=== PATIENT | female | born 1955 | race Caucasian/White ===

== ENCOUNTER 2016-07-02 08:11 | Emergency (ER) | payer BC ==
--- NOTE | 2016-07-02 08:28 | ERNOTE ---
Abdominal HPI - General Chief Complaint: Abdominal Pain Time Seen by Provider: 07/02/16 08:16 Source: patient Exam Limitations: no limitations - Immun/Allergies/Home Medications Immunizatons: IMMUNIZATION HX History of Influenza Vaccine No Hx Pneumococcal Vaccination No Allergies/Adverse Reactions: Allergies indomethacin [From Indocin] Allergy (Mild, Verified 07/02/16 08:21) RASH, SWELLING indomethacin sodium [From Indocin] Allergy (Mild, Verified 07/02/16 08:21) RASH, SWELLING sertraline HCl [From Zoloft] Adverse Reaction (Mild, Verified 07/02/16 08:21) rash Home Medications: HOME MEDICATIONS Olmesartan/Hydrochlorothiazide [Benicar Hct 40-25 mg Tablet] 1 each PO DAILY 09/06 [Last Taken 01/15/13] Potassium Chloride [K-Dur] 20 meq PO DAILY 07/28/12 [Last Taken 01/15/13] Aspirin [Aspirin Enteric Coated] 81 mg PO DAILY 12/13/13 [Last Taken Unknown] Esomeprazole Magnesium [Nexium] 40 mg PO DAILY 04/04/15 [Last Taken Unknown] Flecainide Acetate [Tambocor] 100 mg PO BID 04/04/15 [Last Taken Unknown] - History of Present Illness Narrative: Patient has had right upper quadrant pain intermittently for three days. The pain last about 15 minutes, resolves to come back 30minutes later, radiates to the back, nausea, no vomiting. Patient had a piece of toast at 02:00, no other food. Date (Duration): 06/29/16 Timing: intermittent Quality: moderate Activities at Onset: none Modifying Factors - (Worsens): Absent: breathing, coughing Associated Symptoms: Present: fever/chills, nausea. Absent: diarrhea-gross blood, vomiting, shortness of breath Prior Abdominal Problems: Present: none Prior Treatment: Absent: recently seen, currently on antibiotics Review of Systems - Review of Systems Constitutional: Absent: recent illness, fever ENT: Absent: sore throat Respiratory: Absent: shortness of breath Cardiology: Absent: chest pain Gastrointestinal/Abdominal: Present: See HPI Genitourinary: Present: no symptoms reported - Patient's Past Medical History Patient History - Medical: GERD, Hypothyroidism, Kidney stone, Other Patient History - Cardiac/Respiratory: Atrial Fibrillation, COPD, Hypertension, Pneumonia, Other Patient History - Cancer: No Hx of Cancer Patient History - Surgical Procedures: Tubal Ligation, Other Patient History - Other: None - Family History Father Family History - Medical: Other Grandmother-Paternal Family History - Medical: Other Mother Family History - Medical: Diabetes Type 2 Family History - Cardiac/Respiratory: Other - Social History Living Situations: home Abuse History: No History of abuse Psych History: No pertinent hx Smoking Status: Current every day smoker Alcohol Use: rarely Drug Use: other - Immunizations Immunizations Up to Date: Yes Hx Pneumococcal Vaccination: No History of Influenza Vaccine: No Physical Exam - Physical Exam General Appearance: Present: wd/wn, alert, no apparent distress, obese Respiratory: Present: no respiratory distress, normal breath sounds, no accessory muscle use, lungs clear Cardiovascular/Chest: Present: regular rate, rhythm, no murmur Gastrointestinal/Abdominal: Present: normal bowel sounds, nontender, nondistended, soft Neurological Exam: Present: alert, oriented, normal mood/affect Skin Exam: Present: normal color, warm/dry ED Progress - Results and Orders Patient's Lab Results:: I have reviewed the patient's lab results. - Vital Signs Patient's Vital Signs:: I have reviewed the patient's vital signs. Vital Signs: Vital Signs 07/02/16 08:17 Temperature 36.4 C L Pulse Rate 87 Respiratory 12 Rate Blood Pressure 158/99 O2 Sat by Pulse 96 Oximetry - CT/Ultrasound CT/Ultrasound Narrative: ultrasound: one stone, no cholecystitis - Progress/Reassessment Chief Complaint: Abdominal Pain Progress Note-Subjective: 07/02/16 10:02 pain resolved, discussed results with patient, discussed difference between gall stones and cholecystitis discussed follow up with surgeon, patient wants to wait at this time as pain has resolved Departure - Departure Clinical Impression: Abdominal pain Qualifiers: Abdominal location: right upper quadrant Qualified Code(s): R10.11 - Right upper quadrant pain Cholelithiasis Qualifiers: Cholelithiasis location: gallbladder Cholecystitis presence: without cholecystitis Biliary obstruction: without biliary obstruction Qualified Code(s) : K80.20 - Calculus of gallbladder without cholecystitis without obstruction Disposition: Home self-care Condition: Good Instructions: Cholelithiasis, [id number] Additional Instructions: call Maribell for follow up Referrals: Maribell Germain, H[employer] OPERATOR [[facility]] -
[2016-07-02 08:49] LABS: Hematocrit 45.2 % (37.0-47.0); Hemoglobin 15.3 gm/dL (12.5-16.0); Mean Cell Volume 89.7 fl (78-100); Mean Corpuscular Hemoglobin 30.4 pg (27-31); Mean Corpuscular Hgb Conc 33.8 g/dl (32-36); Mean Platelet Volume 8.4 fl (6.0-9.5); Neutrophil # 7.7 K/mm3 (1.3-6.0); Platelet Count 283 K/mm3 (150-450); Red Blood Count 5.04 M/mm3 (4.2-5.4); Red Cell Distribution Width 13.5 % (11.5-14.0); White Blood Count 12.8 K/mm3 (4.0-10.5)
[2016-07-02 09:07] LABS: Albumin * 3.7 gm/dl (3.4-5.0); BUN/Creatinine Ratio 25.4 (9.0-21.6); Bilirubin, Total 0.8 mg/dL (0.0-1.1); Ca. Corrected For Albumin 8.9 mg/dL (8.4-10.2); Carbon Dioxide 25.7 mmol/L (24-32.6); Potassium 3.7 mmol/L (3.4-4.6); Total Protein 7.7 gm/dL (6.2-8.2)
[2016-07-02 09:44] VITALS: BP 154/84
== END 2016-07-02 10:18 | disposition home or self-care (01) ==
LOC: ER 08:11
DX: K80.20 Calculus of gallbladder without cholecystitis without obstruction (principal); R10.11 Right upper quadrant pain; F17.210 Nicotine dependence, cigarettes, uncomplicated; K21.9 Gastro-esophageal reflux disease without esophagitis; I10 Essential (primary) hypertension

== ENCOUNTER 2017-01-22 06:46 | Day surgery (SDC) | payer BC ==
[~2017-01-22 06:46] MED LIST: RINGER'S SOLUTION,LACTATED 1,000 ML IV PRN
[2017-01-22 07:23] LABS: Hematocrit 42.6 % (37.0-47.0); Hemoglobin 14.4 gm/dL (12.5-16.0); Mean Cell Volume 89.9 fl (78-100); Mean Corpuscular Hemoglobin 30.4 pg (27-31); Mean Corpuscular Hgb Conc 33.8 g/dl (32-36); Mean Platelet Volume 8.6 fl (6.0-9.5); Neutrophil # 5.6 K/mm3 (1.3-6.0); Platelet Count 274 K/mm3 (150-450); Red Blood Count 4.74 M/mm3 (4.2-5.4); Red Cell Distribution Width 12.8 % (11.5-14.0); White Blood Count 9.7 K/mm3 (4.0-10.5)
[2017-01-22] MEDS ORDERED: RINGER'S SOLUTION,LACTATED 1,000 ML IV ONE (07:30)
[2017-01-22] MEDS ORDERED: IBUPROFEN 600 MG TABLET PO PRN (08:34)
[2017-01-22] MEDS ORDERED: oxyCODONE HCL/ACETAMINOPHEN 1 TAB TABLET PO PRN (08:34)
--- NOTE | 2017-01-22 08:39 | OR ---
Operative Report - Dictated Report Narrative: Operative Report 01/22/17 Hysteroscopy Dilatation and Curettage Preoperative Diagnosis: Abnormal Appearance of the Endometrium, Uterine Fibroids Postoperative Diagnosis: Abnormal Appearance of the Endometrium, Uterine Fibroids Procedure: Hysteroscopy Dilatation and Curettage Surgeon: Cary Moralez M.D. Anesthesia: Mario Amador JUNK REMOVAL SPECIALIST, IV sedation Findings: Uterine sound was 8 cm. There was a submucosal fibroid on the posterior aspect of the endometrium which was not removed. There was a small polypoid structure on the anterior aspect of the endometrium just inside the internal cervical os which was removed with curettage. Fluids: 700 ml EBL: Normal Drains: None Complications: None Condition: Stable Pathology: Endometrial curettings and questionable polyp Procedure: The patient was taken to the operating room with IV fluids running. She was placed in the dorsal lithotomy position after anesthesia was induced. A bivalve speculum was placed in the vagina. The anterior lip of the cervix was grasped with a single-tooth tenaculum. Uterine sound was passed into the endometrial cavity with ease. Uterine sound was 8 cm. The cervix was dilated with Alexi dilators. The hysteroscope was introduced into the endometrial cavity. The cavity was distended with normal saline. [place] were visualized bilaterally. Note the findings above. The hysteroscope was removed. The cavity was sharply curetted without difficulty. The hysteroscope was once again introduced into the cavity. The cavity was completely curetted. Attempt was made to remove the submucosal fibroid but was unsuccessful. The hysteroscope was removed. The single-tooth tenaculum was removed. Sites were hemostatic. The speculum was removed from the vagina. Sponge counts were correct 2. The patient tolerated the procedure well.
[2017-01-22] MEDS ORDERED: NORMAL SALINE 1,000 ML IV ONE (08:40)
[2017-01-22 09:41] VITALS: BP 121/66
== END 2017-01-22 06:47 | disposition home or self-care (01) ==
LOC: AMB 06:46
PROVIDERS: ATTEND Obstetrics & Gynecology
PROC: 0UDB8ZX Extraction of Endometrium, Via Natural or Artificial Opening Endoscopic, Diagnostic (ICD-10-PCS; principal; 2017-01-22 08:00)
DX: D25.0 Submucous leiomyoma of uterus (principal); N84.0 Polyp of corpus uteri; I10 Essential (primary) hypertension; I48.91 Unspecified atrial fibrillation; J44.9 Chronic obstructive pulmonary disease, unspecified; K21.9 Gastro-esophageal reflux disease without esophagitis; E03.9 Hypothyroidism, unspecified; E66.9 Obesity, unspecified; Z68.41 Body mass index [BMI] 40.0-44.9, adult; Z87.891 Personal history of nicotine dependence